=== PATIENT | female | born 1935 | race Caucasian/White ===

== ENCOUNTER → 2017-02-10 | Outpatient (CLI) | payer MEDICARE, OTHER ==
[~2017-02-10] MED LIST: /CLOT10TR; /MOXI40TA; /PANT40TA; /TIOT18INH; ADVAIR; ADVAIR HFA; ALBU83IN; AMLO10TA; FLAG500T; LEVO88TA4; LIPI20TA; POTA20TA2; PRED10TA2; PRED20TA; SYNT75TA; VENTAER; XOPE1.252; ZITHTAB
[2017-02-10 19:21] LABS: ALBUMIN/GLOBULIN RATIO 1.14 (1.00-1.93); ALKALINE PHOSPHATASE 69 U/L (45-117); ALT/SGPT 28 U/L (12-78); ANION GAP 8 MEQ/L (8-16); AST/SGOT 23 U/L (15-37); BILIRUBIN,TOTAL 0.4 MG/DL (0.2-1.0); BLOOD UREA NITROGEN 19 MG/DL (7-18); CALCIUM LEVEL 9.3 MG/DL (8.8-10.2); CARBON DIOXIDE LEVEL 36 MEQ/L (21-32); CHLORIDE LEVEL 89 MEQ/L (98-107); CREATININE FOR GFR 0.63 MG/DL (0.55-1.02); GLOMERULAR FILTRATION RATE > 60.0 (>39); GLUCOSE, FASTING 101 MG/DL (83-110); POTASSIUM SERUM 4.2 MEQ/L (3.5-5.1); SODIUM LEVEL 133 MEQ/L (136-145); TOTAL PROTEIN 7.5 GM/DL (6.4-8.2)
[2017-02-11 20:47] LABS: MICROSCOPIC INDICATED? MAN YES (NO)
[2017-02-11 20:55] LABS: BACTERIA, URINE MOD AMOUNT; CALCIUM OXALATE CRYSTALS,URINE MOD AMOUNT /hpf; HYALINE CAST, URINE NONE SEEN /lpf (0-1); RBC, URINE TNTC /hpf (0-3); SQUAMOUS EPITHELIAL CELL URINE SMALL AMOUNT /hpf (SMALL AMT)
[2017-02-11 20:56] LABS: MICROSCOPIC EXAM PERFORMED
== END ==
LOC: M LAB 17:55
PROVIDERS: ATTEND Family Medicine
DX: R31.9 Hematuria, unspecified (principal)